=== PATIENT | female | born 1960 | race Hispanic/Latino ===

== ENCOUNTER 2017-03-06 12:04 | Emergency (ER) | payer SELFPAY ==
[2017-03-06 12:13] VITALS: BP 149/107
[2017-03-06] MEDS ORDERED: MARCAINE 0.5% INFILTRATI ONE (14:07)
[2017-03-06] MEDS ORDERED: CLEOCIN IM ONE (14:07)
[2017-03-06] MEDS ORDERED: ZOFRAN ODT PO ONE (14:07)
[2017-03-06] MEDS ORDERED: PERCOCET 5/325 PO ONE (14:07)
--- NOTE | 2017-03-06 17:44 | Emergency Department Report ---
Entered by TRACE SALMERON, acting as scribe for DOMINIK GRANGER PA. - General Chief complaint: Skin/Abscess/Foreign Body Stated complaint: ABCESS VAG AREA Time Seen by Provider: 03/06/17 13:57 Source: patient, family Mode of arrival: Ambulatory Limitations: No Limitations - History of Present Illness Initial comments: 56 y/o female with PMHx of vaginal delivery x3, presents to the ED c/o left perineum with boil that began four days ago. Associated symptoms include constipation but she denies fever, chills, nausea, vomiting, vaginal discharge, and vaginal bleeding. Pain is described as 9/10 on a severity scale. Patient states symptoms feel "like she's having a baby" and that her last BM was four days ago. No alleviating or aggravating factors. Patient has not experienced similar symptoms in the past. 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 complaint: abscess/boil (left perineum with boil) Onset/Timin -: days(s) Tetanus Up to Date: yes Location: genitals (left vaginal area) Severity: severe Severity scale (0 -10): 9 Quality: constant, other (throbbing) Consistency: constant Improves with: rest Worsens with: palpation, movement Context: other (unknown) Associated symptoms: denies other symptoms Treatments Prior to Arrival: none - Related Data Previous Rx's Medication Instructions Recorded Last Taken Type Cyclobenzaprine [Flexeril] 10 mg PO TID PRN #20 tablet 06/29/13 Unknown Rx Hydrocodone Bit/Acetaminophen 1 each PO Q4-6H #20 tablet 06/29/13 Unknown Rx [Lortab 5-500 Tablet] Acetaminophen/Codeine [Tylenol 1 tab PO Q6H PRN #16 tab 03/06/17 Unknown Rx /Codeine # 3 tab] Ibuprofen [Motrin 800 MG tab] 800 mg PO TID PRN #15 tablet 03/06/17 Unknown Rx Sulfamethoxazole/Trimethoprim 1 each PO BID #20 tablet 03/06/17 Unknown Rx [Bactrim DS TAB] Allergies Allergy/AdvReac Type Severity Reaction Status Date / Time Penicillins Allergy Rash Verified 06/29/13 18:14 Abscess Boil HPI - HPI Chief Complaint: Skin/Abscess/Foreign Body Stated Complaint: ABCESS VAG AREA Time Seen by Provider: 03/06/17 13:10 Duration: 4 Days Location: Other (left perineum with boil) Severity: Mild History: No Fever, No Pain, No Purulent Drainage, No Numbness, No Foreign Body, No Previous History, No Insect Bite Home Medications: Previous Rx's Medication Instructions Recorded Last Taken Type Cyclobenzaprine [Flexeril] 10 mg PO TID PRN #20 tablet 06/29/13 Unknown Rx Hydrocodone Bit/Acetaminophen 1 each PO Q4-6H #20 tablet 06/29/13 Unknown Rx [Lortab 5-500 Tablet] Acetaminophen/Codeine [Tylenol 1 tab PO Q6H PRN #16 tab 03/06/17 Unknown Rx /Codeine # 3 tab] Ibuprofen [Motrin 800 MG tab] 800 mg PO TID PRN #15 tablet 03/06/17 Unknown Rx Sulfamethoxazole/Trimethoprim 1 each PO BID #20 tablet 03/06/17 Unknown Rx [Bactrim DS TAB] Allergies/Adverse Reactions: Allergies Allergy/AdvReac Type Severity Reaction Status Date / Time Penicillins Allergy Rash Verified 06/29/13 18:14 ED Review of Systems Comment: All other systems reviewed and negative Constitutional: denies: chills, fever ENT: denies: throat pain Respiratory: no symptoms reported Cardiovascular: denies: chest pain, palpitations, edema, syncope Endocrine: no symptoms reported Gastrointestinal: constipation. denies: abdominal pain, nausea, vomiting Genitourinary: denies: urgency, dysuria, frequency, hematuria, discharge Musculoskeletal: denies: back pain, joint swelling, arthralgia Skin: other (left vaginal area of redness, painful and swelling.) Neurological: denies: headache, weakness, paresthesias Psychiatric: denies: anxiety, depression Hematological/Lymphatic: denies: easy bleeding, easy bruising ED Past Medical Hx - Past Medical History Previous Medical History?: No Additional medical history: vaginal delivery x 3 - Surgical History Past Surgical History?: No - Family History Family history: hypertension - Social History Smoking Status: Former Smoker Substance Use Type: Non Opiate Pain - Medications Home Medications: Home Medications Medication Instructions Recorded Confirmed Last Taken Type Cyclobenzaprine [Flexeril] 10 mg PO TID PRN #20 tablet 06/29/13 Unknown Rx Hydrocodone Bit/Acetaminophen 1 each PO Q4-6H #20 tablet 06/29/13 Unknown Rx [Lortab 5-500 Tablet] Acetaminophen/Codeine [Tylenol 1 tab PO Q6H PRN #16 tab 03/06/17 Unknown Rx /Codeine # 3 tab] Ibuprofen [Motrin 800 MG tab] 800 mg PO TID PRN #15 tablet 03/06/17 Unknown Rx Sulfamethoxazole/Trimethoprim 1 each PO BID #20 tablet 03/06/17 Unknown Rx [Bactrim DS TAB] ED Physical Exam - General Limitations: No Limitations General appearance: alert, in no apparent distress - Head Head exam: Present: atraumatic, normocephalic, normal inspection - Eye Eye exam: Present: normal appearance, PERRL, EOMI. Absent: conjunctival injection Pupils: Present: normal accommodation - ENT ENT exam: Present: normal exam, normal orophraynx, mucous membranes moist, TM's normal bilaterally, normal external ear exam - Neck Neck exam: Present: normal inspection, full ROM. Absent: tenderness, meningismus, lymphadenopathy - Respiratory Respiratory exam: Present: normal lung sounds bilaterally. Absent: respiratory distress, wheezes, rales, rhonchi, chest wall tenderness, accessory muscle use - Cardiovascular Cardiovascular Exam: Present: normal rhythm, tachycardia, normal heart sounds - GI/Abdominal GI/Abdominal exam: Present: soft, normal bowel sounds. Absent: distended, tenderness, guarding, rebound, rigid - Rectal Rectal exam: Present: hemorrhoids (external hemorrhoid x1). Absent: tenderness - External exam: Present: normal external exam, erythema (left labia with swelling , erythema and tenderness to palpate.), swelling. Absent: lesions, lacerations , ecchymosis, bleeding - Extremities Exam Extremities exam: Present: normal inspection, full ROM, normal capillary refill. Absent: tenderness, pedal edema, joint swelling, calf tenderness - Back Exam Back exam: Present: normal inspection, full ROM. Absent: tenderness, CVA tenderness (R), CVA tenderness (L), muscle spasm, paraspinal tenderness, vertebral tenderness, rash noted - Neurological Exam Neurological exam: Present: alert, oriented X3, normal gait - Psychiatric Psychiatric exam: Present: normal affect, normal mood - Skin Skin exam: Present: warm, dry, other (boil in left labia majora distally, erythema, tender to palpate, positive induration, flunctuance, 6 cm in lenght, 3.5 cm in width) - Expanded Skin Exam Expanded Type of lesion: Present: abscess Distribution of rash: genitals (left labia distally) Description of rash: Present: size (6 cm x 3.5 cm), tenderness, erythematous, swelling, fluctuant, indurated (positive fluctuance to Center of erythema with surrounding induration without fluctuance). Absent: discharge ED Course Vital Signs 03/06/17 03/06/17 12:10 14:49 Temperature 97.5 F L Pulse Rate 105 H Respiratory 20 16 Rate Blood Pressure 149/107 O2 Sat by Pulse 97 Oximetry Vital Signs 03/06/17 03/06/17 03/06/17 12:10 14:49 17:25 Temperature 97.5 F L Pulse Rate 105 H 98 H Respiratory 20 16 Rate Blood Pressure 149/107 O2 Sat by Pulse 97 Oximetry - Reevaluation(s) Reevaluation #1: 03/06/17 17:30 Given clindamycin 600 mg IM for abscess and cellulitis to her vaginal area. Also given Percocet 5/325 mg 2 tablets and Zofran 4 mg ODT in the emergency room for pain. See procedure note for incision and drainage procedure 03/06/17 17:31 - I & D Left Distal Vagina Type of Procedure: Complex Site: left labia majora Blade Size: 11 I & D Procedure: betadine prep, sterile drapes applied, sterile dressing applied , gauze wick placed (half-inch) Progress: TD Vaccine is up-to-date. 0.5 cm incision made to left labia majora for drainage. Patient tolerated procedure well ED Medical Decision Making - Medical Decision Making ED Course: Abscess and cellulitis to the left labia majora. Procedure note for incision and drainage. She was given Percocet 5/325 mg 2 tablets in the emergency room along with Zofran 4 mg ODT with relief Pain and prevention of nausea. Patient given clindamycin 600 mg IM for cellulitis and labia majora. She was understanding of discharge diagnosis and treatment plan. She was instructed to return in 4 days for removal of packing. Patient discharged with her with prescription for Bactrim DS and Tylenol No. 3 along with Motrin. Instructed her to keep affected area clean and dry, do not remove packing in for vaginal area and to apply warm compresses to the area 3-4 times a day to facilitate drainage. ED Disposition Clinical Impression: Abscess of labia majora, Cellulitis of labia majora, Encounter for incision and drainage procedure Disposition: TO HOME OR SELFCARE Is pt being admited?: No Does the pt Need Aspirin: No Condition: Stable Instructions: Abscess Incision and Drainage (ED), Cellulitis (ED) Additional Instructions: Please return to the emergency room in 4 days for removal of pack in. Do not remove packing. Apply warm compresses or do sitz baths 3-4 times a day to facilitate drainage from the vaginal area Please take antibiotic as prescribed Please do not drive or operate heavy machinery as this medication called Tylenol 3 causes drowsiness. Prescriptions: Acetaminophen/Codeine [Tylenol /Codeine # 3 tab] 1 tab PO Q6H PRN #16 tab PRN Reason: Pain , Severe (7-10) Ibuprofen [Motrin 800 MG tab] 800 mg PO TID PRN #15 tablet PRN Reason: Pain Sulfamethoxazole/Trimethoprim [Bactrim DS TAB] 1 each PO BID #20 tablet Referrals: [facility] [Outside] - 03/10/17 ER, RETURN [Other] - 03/10/17 Forms: Accompanied Note, Work/School Release Form(ED) This documentation as recorded by the JARON baker ELIZABETH,accurately reflects the service I personally performed and the decisions made by ,DOMINIK GRANGER PA.
== END 2017-03-06 18:00 | disposition home or self-care (01) ==
LOC: ED 12:04
DX: N76.4 Abscess of vulva (principal); N76.2 Acute vulvitis; Z88.0 Allergy status to penicillin; Z87.891 Personal history of nicotine dependence
CPT/HCPCS: 96372; Q0162

== ENCOUNTER 2017-03-10 19:26 | Emergency (ER) | payer SELFPAY ==
[2017-03-10 20:25] VITALS: BP 134/86
--- NOTE | 2017-03-10 21:55 | Emergency Department Report ---
- General Chief Complaint: Laceration/Recheck/Suture Stated Complaint: FOLLOW UP Time Seen by Provider: 03/10/17 21:50 Source: patient Mode of arrival: Ambulatory Limitations: No Limitations - History of Present Illness Initial Comments: 56-year-old female past medical history cellulitis presents with complaint of abscess that was incised and drained approximately 3 days ago. Patient states that she had abscess in her inner lower thigh crease incised and drained in the ED a few days ago. States that pain has gotten significantly better although she still feels minor discomfort. Patient states that approximately 12 hours after the procedure was done she felt the packing fall out. Patient denies any fever or chills denies any vaginal pain denies any rectal pain. Is awake alert and oriented nontoxic appearing fully ambulatory, accompanied by family member. Onset/Timin -: days(s) Place: home Patient Tetanus UTD: No Associated Symptoms: none - Related Data Previous Rx's Medication Instructions Recorded Last Taken Type Cyclobenzaprine [Flexeril] 10 mg PO TID PRN #20 tablet 06/29/13 Unknown Rx Hydrocodone Bit/Acetaminophen 1 each PO Q4-6H #20 tablet 06/29/13 Unknown Rx [Lortab 5-500 Tablet] Acetaminophen/Codeine [Tylenol 1 tab PO Q6H PRN #16 tab 03/06/17 Unknown Rx /Codeine # 3 tab] Ibuprofen [Motrin 800 MG tab] 800 mg PO TID PRN #15 tablet 03/06/17 Unknown Rx Sulfamethoxazole/Trimethoprim 1 each PO BID #20 tablet 03/06/17 Unknown Rx [Bactrim DS TAB] Allergies Allergy/AdvReac Type Severity Reaction Status Date / Time Penicillins Allergy Rash Verified 06/29/13 18:14 ED Review of Systems ROS: Stated complaint: FOLLOW UP Other details as noted in HPI Constitutional: denies: chills, fever Eyes: denies: eye pain, eye discharge, vision change ENT: denies: ear pain, throat pain Respiratory: denies: cough, shortness of breath, wheezing Cardiovascular: denies: chest pain, palpitations Endocrine: no symptoms reported Gastrointestinal: denies: abdominal pain, nausea, diarrhea Genitourinary: denies: urgency, dysuria, discharge Musculoskeletal: denies: back pain, joint swelling, arthralgia Skin: as per HPI (abscess incised injuring 3 days ago left inner groin region). denies: rash, lesions Neurological: denies: headache, weakness, paresthesias Psychiatric: denies: anxiety, depression Hematological/Lymphatic: denies: easy bleeding, easy bruising ED Past Medical Hx - Past Medical History Previous Medical History?: No Additional medical history: vaginal delivery x 3 - Surgical History Past Surgical History?: No - Social History Smoking Status: Former Smoker Substance Use Type: None - Medications Home Medications: Home Medications Medication Instructions Recorded Confirmed Last Taken Type Cyclobenzaprine [Flexeril] 10 mg PO TID PRN #20 tablet 06/29/13 Unknown Rx Hydrocodone Bit/Acetaminophen 1 each PO Q4-6H #20 tablet 06/29/13 Unknown Rx [Lortab 5-500 Tablet] Acetaminophen/Codeine [Tylenol 1 tab PO Q6H PRN #16 tab 03/06/17 Unknown Rx /Codeine # 3 tab] Ibuprofen [Motrin 800 MG tab] 800 mg PO TID PRN #15 tablet 03/06/17 Unknown Rx Sulfamethoxazole/Trimethoprim 1 each PO BID #20 tablet 03/06/17 Unknown Rx [Bactrim DS TAB] ED Physical Exam - General Limitations: No Limitations General appearance: alert, in no apparent distress - Head Head exam: Present: atraumatic, normocephalic - Eye Eye exam: Present: normal appearance, PERRL, EOMI - ENT ENT exam: Present: mucous membranes moist - Neck Neck exam: Present: normal inspection, full ROM - Respiratory Respiratory exam: Present: normal lung sounds bilaterally. Absent: respiratory distress - Cardiovascular Cardiovascular Exam: Present: regular rate, normal rhythm. Absent: systolic murmur, diastolic murmur, rubs, gallop - GI/Abdominal GI/Abdominal exam: Present: soft, normal bowel sounds - External exam: Present: other (patient has small healing incision site in left inguinal region low vagina were abscess was incised and drained. No visible cellulitis no palpable fluctuance no visible or palpable packing in wound) - Extremities Exam Extremities exam: Present: normal inspection, full ROM - Back Exam Back exam: Present: normal inspection, full ROM - Neurological Exam Neurological exam: Present: alert, oriented X3, CN II-XII intact, normal gait - Psychiatric Psychiatric exam: Present: normal affect, normal mood - Skin Skin exam: Present: warm, dry, intact, normal color. Absent: rash ED Course Vital Signs 03/10/17 20:21 Temperature 98.3 F Pulse Rate 83 Respiratory 18 Rate Blood Pressure 134/86 O2 Sat by Pulse 97 Oximetry ED Medical Decision Making - Medical Decision Making A/P: Visit for wound check (abscess) 1-area of abscess appears to be healing, no palpable fluctuance no packing present on exam no surrounding cellulitis 2-patient states the pain has decreased, she is taking her course of Bactrim. I advised her to finish the full course 3-follow up with primary doctor Critical care attestation.: If time is entered above; I have spent that time in minutes in the direct care of this critically ill patient, excluding procedure time. ED Disposition Clinical Impression: Wound check, abscess Disposition: - TO HOME OR SELFCARE Is pt being admited?: No Does the pt Need Aspirin: No Condition: Stable Instructions: Abscess (ED), Abscess Incision and Drainage (ED), Acute Wound Care (ED) Referrals: [facility] [Outside] - 3-5 Days SANTIAGO CHI MD [Staff Physician] - 3-5 Days Time of Disposition: 21:56
== END 2017-03-10 22:04 | disposition home or self-care (01) ==
LOC: ED 19:26
DX: Z48.00 Encounter for change or removal of nonsurgical wound dressing (principal)